=== PATIENT | female | born 1960 | race Caucasian/White ===

== ENCOUNTER 2022-07-14 06:37 | Day surgery (SDC) | payer OTHER, MEDICAID ==
[2022-07-13 09:13] VITALS: BMI 35.9
[2022-07-14] MEDS ORDERED: PROPOFOL 20 ML ONE ×3 (08:43→09:44)
[2022-07-14] MEDS ORDERED: Fentanyl 100 MCG/2 ML VIAL ONE (08:43)
[2022-07-14] MEDS ORDERED: Lidocaine 1% PF 5 ML VIAL ONE (08:43)
== END 2022-07-14 10:55 | disposition home or self-care (01) ==
LOC: CSHSDC 06:37
PROVIDERS: ATTEND Internal Medicine Gastroenterology
PROC: 0DBN8ZZ Excision of Sigmoid Colon, Via Natural or Artificial Opening Endoscopic (ICD-10-PCS; principal; 2022-07-14)
PROC: 0DB68ZX Excision of Stomach, Via Natural or Artificial Opening Endoscopic, Diagnostic (ICD-10-PCS; 2022-07-14)
DX: Z12.11 Encounter for screening for malignant neoplasm of colon (principal); K51.40 Inflammatory polyps of colon without complications; K21.9 Gastro-esophageal reflux disease without esophagitis; K29.80 Duodenitis without bleeding; K57.30 Diverticulosis of large intestine without perforation or abscess without bleeding; K64.8 Other hemorrhoids; K44.9 Diaphragmatic hernia without obstruction or gangrene; K31.9 Disease of stomach and duodenum, unspecified; G47.30 Sleep apnea, unspecified; M19.90 Unspecified osteoarthritis, unspecified site; E66.9 Obesity, unspecified; Z68.35 Body mass index [BMI] 35.0-35.9, adult; Z88.6 Allergy status to analgesic agent; Z88.8 Allergy status to other drugs, medicaments and biological substances; Z79.899 Other long term (current) drug therapy
CPT/HCPCS: 88305; J2704; J3010

== ENCOUNTER 2022-10-16 10:09 | Emergency (ER) | payer OTHER, MEDICAID | END 2022-10-16 12:27 | disposition home or self-care (01) | LOC: CSHERS 10:09 | DX: S76.922A Laceration of unspecified muscles, fascia and tendons at thigh level, left thigh, initial encounter (principal); S76.921A Laceration of unspecified muscles, fascia and tendons at thigh level, right thigh, initial encounter; M62.838 Other muscle spasm; X58.XXXA Exposure to other specified factors, initial encounter | CPT/HCPCS: 99283 ==